=== PATIENT | male | born 1970 | race Caucasian/White ===

== ENCOUNTER 2016-06-09 21:24 | Emergency (ER) | payer SELFPAY ==
[~2016-06-09 21:24] MED LIST: CYCL-36 PO; DICL-86 PO; DOXY100T PO; Z.0.NO CURRENT MEDS
[2016-06-09 21:25] VITALS: BP 166/102; PULSE 84; RESP 20; TEMP 98.4; O2SAT 97
--- NOTE | 2016-06-09 21:37 | PD ---
Physical Exam Date Seen by Provider: Jun 09, 2016 Time Seen by Provider: 21:34 Narrative 46 YOWM C/O ABD SEVERE PAIN ALL DAY TODAY. POS N/V NO F/C H/O ABD PAIN IN THE PAST ,HEP C. 12/15 PAIN VS NOTED AWAITING BED PLACEMENT Data Data Last Documented VS Vital Signs Date Time Temp Pulse Resp B/P Pulse Ox O2 Delivery O2 Flow Rate FiO2 06/09/16 21:25 98.4 84 20 166/102 97 Room Air [facility] Medical Record Reviewed: Yes Supervised Visit with VANGIE: Yes Blas Blakely Jun 09, 2016 21:37
[2016-06-09 23:29] VITALS: BP 156/97; PULSE 84; RESP 25; TEMP 98.2; O2SAT 97
[2016-06-09] MEDS ORDERED: SODIUM CHLOR 0.9% 1000 ML INJ 1,000 ML IV SCH (23:55)
[2016-06-10] MEDS ORDERED: FAMOTIDINE 20 MG/2 ML VIAL IV PUSH ONE
[2016-06-10] MEDS ORDERED: ONDANSETRON HCL 4 MG/2 ML VIAL IVP ONE
[2016-06-10] MEDS ORDERED: SODIUM CHLORIDE 0.9% FLUSH 10 ML FLUSH IV FLUSH PRN
[2016-06-10 00:16] LABS: AUTOMATED NEUTROPHIL # 9.2 TH/MM3 (1.8-7.7); BASOPHIL % 0.4 % (0.0-2.0); EOSINOPHIL % 0.1 % (0.0-4.0); HEMATOCRIT 43.7 % (39.0-51.0); HEMO FLAGS DIFF FINAL; LYMPH % 7.9 % (9.0-44.0); LYMPHOCYTE # 0.8 TH/MM3 (1.0-4.8); MEAN CELL VOLUME 85.8 FL (80.0-100.0); MEAN CORPUSCULAR HEMOGLOBIN 29.4 PG (27.0-34.0); MEAN CORPUSCULAR HGB CONC 34.3 % (32.0-36.0); MONO % 4.5 % (0.0-8.0); NEUT % 87.1 % (16.0-70.0); PLATELET COUNT 255 TH/MM3 (150-450); RED BLOOD COUNT 5.09 MIL/MM3 (4.50-5.90); RED CELL DISTRIBUTION WIDTH 13.6 % (11.6-17.2); WHITE BLOOD COUNT 10.6 TH/MM3 (4.0-11.0)
[2016-06-10 00:24] LABS: APTT (PATIENT) 25.9 SEC (24.3-30.1); PROTHROMBIN TIME - PATIENT 10.9 SEC (9.8-11.6)
[2016-06-10 01:43] LABS: ALKALINE PHOSPHATASE 68 U/L (45-117); TOTAL BILIRUBIN ADULT 0.8 MG/DL (0.2-1.0)
[2016-06-10 01:54] LABS: ALT (GPT) 24 U/L (12-78); ANION GAP 12 MEQ/L (5-15); AST (GOT) 25 U/L (15-37); BICARBONATE 23.4 MEQ/L (21.0-32.0); BLOOD UREA NITROGEN 17 MG/DL (7-18); CHLORIDE 106 MEQ/L (98-107); GLOMERULAR FILTRATION RATE 99 ML/MIN (>89); SODIUM (NA) 141 MEQ/L (136-145)
[2016-06-10 01:56] LABS: POTASSIUM 4.2 MEQ/L (3.5-5.1)
[2016-06-10] MEDS ORDERED: IOHEXOL 350 MG/ML 10 ML VIAL (for RAD DIAG) IV ONE (02:36)
--- NOTE | 2016-06-10 02:47 | RADRPT ---
EXAM DATE/TIME: 06/10/2016 02:21 [place] COMPARISON: No previous studies available for comparison. INDICATIONS : Diffuse abdominal pain with nausea and vomiting. IV CONTRAST: 95 cc Omnipaque 350 (iohexol) IV ORAL CONTRAST: No oral contrast ingested. RADIATION DOSE: 10.20 CTDIvol (mGy) MEDICAL HISTORY : Hepatitis C. SURGICAL HISTORY : None. ENCOUNTER: Initial ACUITY: 1 day PAIN SCALE: 7/10 LOCATION: Abdomen. TECHNIQUE: Volumetric scanning of the abdomen and pelvis was performed. Using automated exposure control and ad justment of the mA and/or kV according to patient size, radiation dose was kept as low as reasonably achievable to obtain optimal diagnostic quality images. FINDINGS: LOWER LUNGS: The visualized lower lungs are clear. LIVER: Homogeneous density without lesion. There is no dilation of the biliary tree. No calcified gallston es. SPLEEN: Normal size without lesion. PANCREAS: Within normal limits. KIDNEYS: Normal in size and shape. There is no mass, stone or hydronephrosis. Single small left cortical le l cyst. ADRENAL GLANDS: Within normal limits. VASCULAR: There is no aortic aneurysm. BOWEL/MESENTERY: The stomach, small bowel, and colon demonstrate no acute abnormality. There is no free intraperitone al air or fluid. Scattered colonic diverticuli without acute inflammation. The appendix is normal by CT criteria. ABDOMINAL WALL: Within normal limits. RETROPERITONEUM: There is no lymphadenopathy. BLADDER: No wall thickening or mass. REPRODUCTIVE: Within normal limits. INGUINAL: There is no lymphadenopathy or hernia. MUSCULOSKELETAL: Within normal limits for patient age. CONCLUSION: 1. No acute abnormality. 2. Colonic diverticulosis without acute inflammation. Dennys Fu Jr., MD on June 10, 2016 at 2:43 Board Certified Radiologist. This report was verified electronically.
[2016-06-10] MEDS ORDERED: LIDOCAINE VISCOUS 2% SOLN 15 ML UDC PO ONE (03:00)
[2016-06-10] MEDS ORDERED: DICYCLOMINE HCL 10 MG CAP PO ONE (03:00)
[2016-06-10] MEDS ORDERED: ALUMINUM/MAGNESIUM/SIMETH 30 ML CUP PO ONE (03:00)
[2016-06-10 03:28] LABS: BLOOD, URINE NEG (NEG); GLUCOSE,URINE TRACE mg/dL (NEG); KETONE, URINE 80 mg/dL (NEG); MUCUS URINE FEW /lpf (OCC); NITRITE,URINE NEG (NEG); PH, URINE 7.5 (5.0-8.5); URINE COLOR YELLOW (YELLW/STRAW)
[2016-06-10 03:29] LABS: COMMENT (UR) CULT NOT INDICATED; CULTURE IF INDICATED CULT NOT INDICATED
[2016-06-10 03:43] VITALS: BP 130/77; PULSE 81; RESP 20; TEMP 98.2; O2SAT 98
[2016-06-10] MEDS ORDERED: MORPHINE SULFATE 4 MG/ML INJ IV PUSH ONE ×2 (03:45)
--- NOTE | 2016-06-10 04:29 | PD ---
HPI Chief Complaint: Abdominal Pain Time Seen by Provider: 23:35 Travel History International Travel<30 days: No Contact w/Intl Traveler<30days: No Traveled to known affect area: No History of Present Illness HPI Patient is a 46 year old male who comes in with his parents, complaining of abdominal pain with nausea and vomiting. He says that he has vomiting after meals, usually once per week and he has seen a GI doctor in the past. He says this time, he has been feeling this way for the past 4 days, so he came in. He says he has pain all over his abdomen. He says he has vomited twice today and once yesterday. He reports having a normal bowel movement this morning. He denies fever or chills. [facility] Social History Alcohol Use: No Tobacco Use: No Substance Use: Yes (marijuana socially) Allergies-Medications (Allergen,Severity, Reaction): Coded Allergies: Penicillin (Verified Allergy, Severe, Anaphylaxis, 06/19/10) Reported Meds & Prescriptions Reported Meds & Active Scripts Active Voltaren (Diclofenac Sodium) 75 Mg Tabec 75 Mg PO BID Flexeril (Cyclobenzaprine HCl) 10 Mg Tab 10 Mg PO TID Vibramycin (Doxycycline Hyclate) 100 Mg Cap 100 Mg PO BID Reported No Current Meds (Miscellaneous Medication) Misc Review of Systems Except as stated in HPI: all other systems reviewed are Neg General / Constitutional: No: Fever, Chills Eyes: No: Blurred Vision HENT: No: Headaches, Lightheadedness Cardiovascular: No: Chest Pain or Discomfort Respiratory: No: Shortness of Breath Gastrointestinal: Positive: Nausea, Vomiting, Abdominal Pain, No: Diarrhea Genitourinary: No: Dysuria Musculoskeletal: No: Edema Skin: No Rash, No Change in Pigmentation Neurologic: No: Weakness, Dizziness Physical Exam Narrative GENERAL: Awake and alert, in no acute distress. SKIN: Focused skin assessment warm/dry. HEAD: Atraumatic. Normocephalic. EYES: Pupils equal and round. No scleral icterus. ENT: Mucous membranes pink and moist. NECK: Trachea midline. No JVD. CARDIOVASCULAR: Regular rate and rhythm. No murmur appreciated. RESPIRATORY: No accessory muscle use. Clear to auscultation. Breath sounds equal bilaterally. GASTROINTESTINAL: Abdomen soft, non-tender, nondistended. Pain is not reproducible on palpation. MUSCULOSKELETAL: No obvious deformities. No clubbing. No cyanosis. No edema. NEUROLOGICAL: Awake and alert. No obvious cranial nerve deficits. Motor grossly within normal limits. Normal speech. PSYCHIATRIC: Appropriate mood and affect; insight and judgment normal. Data Data Last Documented VS Vital Signs Date Time Temp Pulse Resp B/P Pulse Ox O2 Delivery O2 Flow Rate FiO2 06/10/16 04:32 98.2 88 16 130/77 98 06/10/16 03:43 Room Air Orders Complete Blood Count With Diff (06/09/16 23:55) Comprehensive Metabolic Panel (06/09/16 23:55) Lipase (06/09/16 23:55) Prothrombin Time / Inr (Pt) (06/09/16 23:55) Act Partial Throm Time (Ptt) (06/09/16 23:55) Urinalysis - C+S If Indicated (06/09/16 23:55) Ua Includes Microscopic (06/09/16 23:55) Ct Abd/Pel W Iv Contrast(Rout) (06/09/16 23:55) Iv Access Insert/Monitor (06/09/16 23:55) Ecg Monitoring (06/09/16 23:55) Oximetry (06/09/16 23:55) Morphine Inj (Morphine Inj) (06/10/16 00:00) Ondansetron Inj (Zofran Inj) (06/10/16 00:00) Sodium Chlor 0.9% 1000 Ml Inj (Ns 1000 M (06/09/16 23:55) Sodium Chloride 0.9% Flush (Ns Flush) (06/10/16 00:00) Famotidine Inj (Pepcid Inj) (06/10/16 00:00) Iohexol 350 Inj (Omnipaque 350 Inj) (06/10/16 02:36) Dicyclomine (Bentyl) (06/10/16 03:00) Al-Mag Hy-Si 40-40-4 Mg/Ml Liq (Mag-Al P (06/10/16 03:00) Lidocaine 2% Viscous (Xylocaine 2% Visco (06/10/16 03:00) Morphine Inj (Morphine Inj) (06/10/16 03:45) Labs Laboratory Tests Test 06/10/16 06/10/16 00:00 03:10 White Blood Count 10.6 TH/MM3 Red Blood Count 5.09 MIL/MM3 Hemoglobin 15.0 GM/DL Hematocrit 43.7 % Mean Corpuscular Volume 85.8 FL Mean Corpuscular Hemoglobin 29.4 PG Mean Corpuscular Hemoglobin 34.3 % Concent Red Cell Distribution Width 13.6 % Platelet Count 255 TH/MM3 Mean Platelet Volume 8.7 FL Neutrophils (%) (Auto) 87.1 % Lymphocytes (%) (Auto) 7.9 % Monocytes (%) (Auto) 4.5 % Eosinophils (%) (Auto) 0.1 % Basophils (%) (Auto) 0.4 % Neutrophils # (Auto) 9.2 TH/MM3 Lymphocytes # (Auto) 0.8 TH/MM3 Monocytes # (Auto) 0.5 TH/MM3 Eosinophils # (Auto) 0.0 TH/MM3 Basophils # (Auto) 0.0 TH/MM3 CBC Comment DIFF FINAL Differential Comment Prothrombin Time 10.9 SEC Prothromb Time International 1.0 RATIO Ratio Activated Partial 25.9 SEC Thromboplast Time Sodium Level 141 MEQ/L Potassium Level 4.2 MEQ/L Chloride Level 106 MEQ/L Carbon Dioxide Level 23.4 MEQ/L Anion Gap 12 MEQ/L Blood Urea Nitrogen 17 MG/DL Creatinine 0.84 MG/DL Estimat Glomerular Filtration 99 ML/MIN Rate Random Glucose 110 MG/DL Calcium Level 9.4 MG/DL Total Bilirubin 0.8 MG/DL Aspartate Amino Transf 25 U/L (AST/SGOT) Alanine Aminotransferase 24 U/L (ALT/SGPT) Alkaline Phosphatase 68 U/L Total Protein 8.0 GM/DL Albumin 4.0 GM/DL Lipase 162 U/L Urine Color YELLOW Urine Turbidity CLOUDY Urine pH 7.5 Urine Specific [place] 1.050 Urine Protein TRACE mg/dL Urine Glucose (UA) TRACE mg/dL Urine Ketones 80 mg/dL Urine Occult Blood NEG Urine Nitrite NEG Urine Bilirubin NEG Urine Urobilinogen LESS THAN 2.0 MG/DL Urine Leukocyte Esterase NEG Urine RBC 18 /hpf Urine WBC 1 /hpf Urine Amorphous Sediment RARE Urine Mucus FEW /lpf Microscopic Urinalysis Comment CULT NOT INDICATED MDM Medical Decision Making Medical Screen Exam Complete: Yes Emergency Medical Condition: Yes Medical Record Reviewed: Yes Differential Diagnosis Gastritis vs gastroenteritis vs colitis versus diverticulitis Narrative Course Patient is a 46-year-old male comes in complaining of abdominal pain with nausea and vomiting. Pain is not reproducible on exam. IV established, labs sent. Labs show no acute abnormalities. Patient given IV fluids, Zofran, 2 mg of morphine, GI cocktail. Abdomen and pelvis performed show no acute abnormalities, no cause of his pain. Patient advised she needs to follow-up with GI. Given second dose of morphine. Advised to eat bland foods, avoid alcohol, drink playing of fluids. Advised to return to the ED as needed for any worsening symptoms. Diagnosis Primary Impression: Abdominal pain Qualified Code: R10.84 - Generalized abdominal pain Patient Instructions: Abdominal Pain (ED), Gastritis (ED), General Instructions Additional Instructions: Follow up with your doctors. Return to the ED as needed for any worsening symptoms. Eat a bland diet. Drink plenty of fluids. Disposition: 01 DISCHARGE HOME Condition: Stable Dee Dee Cody MD Jun 10, 2016 04:29
[2016-06-10 04:32] VITALS: BP 130/77; TEMP 98.2
== END 2016-06-10 05:01 | disposition home or self-care (01) ==
LOC: NEPC 21:24
DX: R10.84 Generalized abdominal pain (principal); R11.2 Nausea with vomiting, unspecified
CPT/HCPCS: 74177; 80053; 81001; 83690; 85025; 85610; 85730; 96361; 96374; 96375; 96376; 99284; J2270; J2405; J7030; Q9967